=== PATIENT | male | born 2000 | race Hispanic/Latino ===

== ENCOUNTER → 2022-12-01 | Outpatient (CLI) | payer OTHER | LOC: CT 10:59 | PROVIDERS: ATTEND Orthopaedic Surgery | DX: S62.102A Fracture of unspecified carpal bone, left wrist, initial encounter for closed fracture (principal) ==

== ENCOUNTER → 2023-12-29 | Emergency (ER) | payer OTHER | END | disposition left against medical advice (07) | LOC: ER 08:13 | DX: M25.561 Pain in right knee (principal) ==

== ENCOUNTER 2024-06-29 19:16 | Emergency (ER) | payer OTHER | END 2024-06-29 19:34 | disposition short-term general hospital (02) | LOC: ER 19:27 | DX: T14.8XXA Other injury of unspecified body region, initial encounter (principal) ==